=== PATIENT | male | born 2000 | race Caucasian/White ===

== ENCOUNTER → 2021-01-05 | Emergency (ER) | payer BC ==
[~2021-01-05] VITALS: Ht 182.9 cm; Wt 75.0 kg
[2021-01-05 21:47] VITALS: BP 120/76; PULSE 72; TEMP 98.7
== END ==
LOC: COL.ER 19:56
DX: S06.0X0A Concussion without loss of consciousness, initial encounter (principal); W51.XXXA Accidental striking against or bumped into by another person, initial encounter; Y93.61 Activity, american tackle football

== ENCOUNTER 2021-04-22 22:31 | Emergency (ER) | payer BC ==
[~2021-04-22] VITALS: Ht 182.9 cm; Wt 75.0 kg
[2021-04-22 22:49] LABS: BASO # 0.1 K/mm3 (0.0-0.2); BASO % 1.2 % (0.0-2.0); EOS # 0.3 K/mm3 (0.0-0.7); EOS % 4.1 % (0.0-4.0); GRAN # 3.7 K/mm3 (1.4-6.5); GRAN % 45.7 % (42.2-75.2); HEMATOCRIT 42.1 % (42.0-52.0); HEMOGLOBIN 14.6 g/dl (13.5-18.0); LYMPH # 3.5 K/mm3 (1.2-3.4); LYMPH % 43.1 % (20.0-51.0); MEAN CELL VOLUME 87 fl (80.0-100.0); MEAN CORPUSCULAR HEMOGLOBIN 30 pg (27-31); MEAN CORPUSCULAR HGB CONC 35 g/dl (33.0-37.0); MONO # 0.5 K/mm3 (0.1-0.6); MONO % 5.7 % (1.7-9.3); PLATELET COUNT 312 K/mm3 (130-400); RED BLOOD COUNT 4.85 M/mm3 (4.20-5.60)
[2021-04-22 23:10] LABS: ALANINE AMINOTRANSFERASE 175 U/L (0-55); ALBUMIN 4.5 gm/dL (3.5-5.0); ALKALINE PHOSPHATASE 77 U/L (40-150); ANION GAP 15 mmol/L (7-16); AST,SGOT 102 U/L (5-34); BILIRUBIN,TOTAL 0.6 mg/dL (0.2-1.2); BLOOD UREA NITROGEN 17 mg/dL (9-21); CALCIUM 8.9 mg/dL (8.4-10.2); CARBON DIOXIDE 22 mmol/L (22-29); CHLORIDE 106 mmol/L (98-107); CREATININE, serum 0.96 mg/dL (0.72-1.25); GLUCOSE 130 mg/dL (70-99); POTASSIUM 3.2 mmol/L (3.5-4.5); SODIUM 143 mmol/L (136-145); TOTAL PROTEIN 7.3 gm/dL (6.2-8.1)
[2021-04-22 23:16] LABS: TROPONIN-I < 0.010 ng/mL (0.00-0.033)
[2021-04-23 01:11] VITALS: BP 112/67; PULSE 112; TEMP 99.1
== END 2021-04-23 01:10 | disposition home or self-care (01) ==
LOC: COL.ER 22:31
PROVIDERS: Emergency Medicine
DX: R00.0 Tachycardia, unspecified (principal); T40.715A Adverse effect of cannabis, initial encounter; F41.9 Anxiety disorder, unspecified; F17.210 Nicotine dependence, cigarettes, uncomplicated
CPT/HCPCS: J2060; J7030